=== PATIENT | male | born 1935 | race Caucasian/White ===

== ENCOUNTER → 2016-12-12 | Outpatient (CLI) | payer MEDICARE ==
[~2016-12-12] MED LIST: AC325T PO; ACET325T38 PO; ALLO100T PO; ALLP100T PO; ALPR.25T PO; ALPR0.254 PO; AMLO5TAB2 PO; ATOR10TA66 PO; CITA40TA11 PO; CTLP20T PO; DCS100C PO; DIVA125C10 PO; DOCU-143 PO; DRNB2.5C PO; ENAL20TA PO; ENAL20TA76 PO; ENLP10T PO; ENOX40DI8 SC; FAMO20TA5 PO; FLUT16SP22; FURO40TA4 PO; HYDR-3812 PO; HYDR-757 PO; LACT10PA2 PO; LEVO25TA PO; LOVA20TA2 PO; LVT.025T PO; MAGN400O7 PO; MENT71OI TP; METO2.5T PO; MIRT30TA6 PO; POTA10TA36 PO; RANI150T11 PO; RIVA1PAT TD; SITA100T PO; SITA50TA PO; SMV10T PO; TR025C15 TP
[2016-12-12 17:44] LABS: BILIRUBIN,URINE NEGATIVE (NEGATIVE); KETONES,URINE NEGATIVE (NEGATIVE); LEUKOCYTE ESTERASE ,URINE NEGATIVE (NEGATIVE); NITRITE,URINE NEGATIVE (NEGATIVE); PH,URINE 5 (5-9); PROTEIN,URINE NEGATIVE (NEGATIVE); UROBILINOGEN,URINE NORMAL (NORMAL)
[2016-12-12 18:13] LABS: SQUAMOUS EPITHELIAL CELL,UR 0-2 /HPF
== END ==
LOC: LABNPT 17:16
PROVIDERS: ATTEND Internal Medicine
DX: R45.1 Restlessness and agitation (principal); R35.0 Frequency of micturition
CPT/HCPCS: 81000

== ENCOUNTER 2017-12-25 20:47 | Emergency (ER) | payer MEDICARE ==
[~2017-12-25] VITALS: Ht 175.3 cm; Wt 77.3 kg
[~2017-12-25 20:47] MED LIST changes: +ACHD5005 PO; -HYDR-3812 PO
--- NOTE | 2017-12-25 21:03 | ED Fall/Injury ---
General Chief Complaint: Trauma-Non Activation Stated Complaint: FALL Nursing Triage Note: FALL FROM WHEELCHAIR Source: patient, EMS, custodial records Exam Limitations: clinical condition History of Present Illness Date Seen by Provider: Dec 25, 2017 Time Seen by Provider: 20:45 Initial Comments The patient presents to the ER from [facility] by EMS with a chief complaint that per nursing staff he likes to lean forward in his wheelchair and tonight he was leaning forward and just fell out of it onto his forehead. He scuffed up his forehead. He applied some Vaseline ointment to it. He is also having some pain in his left knee and right shoulder. Blood sugar 334 per EMS and his vital signs are stable with no fever. He's had no complaints of cough shortness of breath etc. He is in the custodial because of a fall a few years ago and brain bleed subsequent. At baseline is not very communicative but can answer simple yes or no questions. . He is not on any blood thinners. EMS reports the patient refused to wear the c-collar. Location [facility] Occurred: [facility] Allergies and Home Medications Allergies Coded Allergies: Sulfa (Sulfonamide Antibiotics) (Verified Allergy, Mild, 02/18/16) HIVES levofloxacin (Verified Allergy, Mild, 02/18/16) metformin (Verified Allergy, Mild, 02/18/16) CAUSES DIARRHEA iodine (Verified Adverse Reaction, Severe, 02/18/16) ANAPHYLAXIS Home Medications Acetaminophen 325 Mg Tablet, 325 MG PO TID, (Reported) Allopurinol 100 Mg Tablet, 100 MG PO BID, (Reported) Alprazolam 0.25 Mg Tablet, 0.25 MG PO TID, (Reported) Amlodipine Besylate 5 Mg Tablet, 5 MG PO DAILY, (Reported) Atorvastatin Calcium 10 Mg Tablet, 15 MG PO HS, (Reported) TAKES 1 & 1/2 (10MG) TABLET Citalopram Hydrobromide 40 Mg Tablet, 40 MG PO HS, (Reported) Divalproex Sodium 125 Mg Cap.sprink, 250 MG PO BID, (Reported) TAKES 2 (125MG) CAPSULES Docusate Sodium 100 Mg Capsule, 100 MG PO DAILY PRN for CONSTIPATION, (Reported) Enalapril Maleate 20 Mg Tablet, 20 MG PO 1400, (Reported) Enoxaparin Sodium 40 Mg/0.4 Ml Syringe, 40 MG SC DAILY@0800 Prescribed by: LUIS A VALENTINE on 02/21/16 0851 Fluticasone Propionate 16 Gm [place].susp, 2 SPRAYS NA 1800, (Reported) Furosemide 40 Mg Tablet, 40 MG PO BID, (Reported) Hydrocodone Bit/Acetaminophen 1 Each Tablet, 0 TAB PO Q4H PRN for SEVERE PAIN Prescribed by: LUIS A VALENTINE on 02/21/16 0851 Lactulose 10 Gm Packet, 10 GM PO DAILY PRN for CONSTIPATION, (Reported) Levothyroxine Sodium 25 Mcg Tablet, 25 MCG PO 0530, (Reported) Menthol/Lanolin/Calamine/Znox 71 Gm Oint, TP Q12H PRN for SKIN CONDITION, ( Reported) APPLY TO BUTTOCKS Metolazone 2.5 Mg Tablet, 2.5 MG PO MoWeFr, (Reported) Mirtazapine 30 Mg Tablet, 30 MG PO HS, (Reported) Potassium Chloride 10 Meq Tab.er.prt, 10 MEQ PO DAILY, (Reported) Ranitidine HCl 150 Mg Tablet, 150 MG PO 1800, (Reported) Rivastigmine 4.6 Mg Patch, 4.6 MG TD 1400, (Reported) Triamcinolone Acet 15 Gm Cr, TP BID PRN for DERMATITIS, (Reported) APPLY TO POSTERIOR NECK 1% Patient Home Medication List Home Medication List Reviewed: Yes Review of Systems Constitutional: No chills, No diaphoresis Eyes: Denies Blindness, Denies Blurred Vision, Denies Drainage Ears, Nose, Mouth, Throat: denies ear pain, denies ear discharge Respiratory: No cough, No short of breath Cardiovascular: No chest pain, No edema Gastrointestinal: No abdominal pain, No nausea, No vomiting Genitourinary: No discharge, No dysuria Musculoskeletal: see HPI; No back pain; joint pain Past Dhjccwo-Yovsbm-Yqybsj Hx Patient Social History Alcohol Use: Denies Use Recreational Drug Use: No Smoking Status: Never a Smoker 2nd Hand Smoke Exposure: No Recent Foreign Travel: No Contact w/Someone Who Travel: No Recent Infectious Disease Expo: No Recent Hopitalizations: No Immunizations Up To Date Tetanus Booster (TDap): Unknown PED Vaccines UTD: No Date of Pneumonia Vaccine: Mar 01, 2016 Seasonal Allergies Seasonal Allergies: No Past Medical History Surgeries: Yes (retinal eye tear repair) Orthopedic Respiratory: No Cardiac: Yes (edema) High Cholesterol, Hypertension Neurological: Yes Dementia, Stroke Reproductive Disorders: No Sexually Transmitted Disease: No HIV/AIDS: No Gastrointestinal: Yes Gastroesophageal Reflux, Chronic Constipation Musculoskeletal: Yes Gout Endocrine: Yes Hypothyroidsim, Diabetes, Non-Insulin dep Cancer: No Psychosocial: No (mood disorder) Anxiety, Depression Integumentary: No Blood Disorders: No Adverse Reaction/Blood Tranf: No Family Medical History Family history: Breast disease 03 MOTHER Family history: Diabetes mellitus 09 BROTHER History of - disorder 03 FATHER History of - respiratory disease 03 FATHER Hypercholesterolemia 09 BROTHER Parkinson's disease 03 MOTHER Stroke 03 MOTHER Tuberculosis 03 MOTHER No Family History of: Abdominal aortic aneurysm Johnston's disease Alcoholism Aphasia Cancer Cancer of colon Cataract Chest pain Congenital heart disease Congestive heart failure Dementia Dysphagia Family history: Allergy Family history: Alzheimer's disease Family history: Arthritis Family history: Asthma Family history: Cardiovascular disease Family history: Coronary thrombosis Family history: Gastrointestinal disease Family history: Glaucoma Family history: Hypertension Family history: Osteoporosis Family history: Thyroid disorder Headache Hearing loss Heart disease Hereditary disease History of - anemia History of drug abuse Human immunodeficiency virus (HIV) seropositivity Infertile Malignant neoplasm of lung Myocardial infarction Prostate cancer Psychotic disorder Seizure disorder Physical Exam Vital Signs Vital Signs - First Documented 12/25/17 20:50 Temp 97.6 Pulse 96 Resp 16 B/P (MAP) 151/87 (108) Pulse Ox 97 O2 Delivery Room Air Capillary Refill : Less Than 3 Seconds Height, Weight, BMI Height: 5'9" Weight: 170lbs. 8.0oz. 77.619313zw; 28.3 BMI Method:Estimated General Appearance: WD/WN, no apparent distress, other HEENT: PERRL/EOMI, normal ENT inspection, TMs normal Neck: non-tender, full range of motion, supple, normal inspection Cardiovascular: normal peripheral pulses, regular rate, rhythm, other ( bilateral lower extremity 2+ edema with compression stockings in place) Respiratory: chest non-tender, lungs clear, normal breath sounds, no respiratory distress, no accessory muscle use Peripheral Pulses: 2+ Radial Pulses (R), 2+ Radial Pulses (L) Gastrointestinal: normal bowel sounds, non tender, soft Pelvic: normal external exam, other (and nontender to palpation) Extremities: normal range of motion, normal capillary refill, other (swelling and pain in the left knee with a small superficial abrasion anteriorly. Pain in the right clavicle) Neurologic/Psychiatric: alert, other (oriented to person) Skin: other (abrasion left knee and forehead) Saline Coma Score Best Eye Response: (4) Open Spontaneously Best Verbal Response: (4) Confused Conversation Best Motor Response: (6) Obeys Commands [place] Total: 15 Progress/Results/Core Measures Results/Orders My Orders Orders - ARIADNA VILCHIS Ct Head/Cervical Spine Wo (12/25/17 20:54) Chest 1 View, Ap/Pa Only (12/25/17 20:54) Shoulder, Right, 3 Views (12/25/17 20:54) Knee, Left, 3 Views (12/25/17 20:54) Vital Signs/I&O 12/25/17 20:50 Temp 97.6 Pulse 96 Resp 16 B/P (MAP) 151/87 (108) Pulse Ox 97 O2 Delivery Room Air Blood Pressure Mean: 108 Progress Progress Note : Time: 21:01 Progress Note Offered him pain medicine and he has declined. Plan to scan his head and neck with CT and obtain shoulder topical x-ray on the right and left knee x-rays. His range of motion is full but he is wheelchair bound at baseline. Between vital signs and blood sugars no indication for any blood tests or urinalysis time. Diagnostic Imaging Diagonstic Imaging: CT (without contrast) Plain Films/CT/US/NM/MRI: c-spine, head Comments NAME: DEBRA COSBY [facility] REC#: [id number] PT STATUS: REG ER : 1935 PHYSICIAN: ARIADNA VILCHIS MD ADMIT DATE: 12/25/17/ER Draft Date of Exam:12/25/17 CT HEAD/CERVICAL SPINE WO PROCEDURE: CT head and CT cervical spine without contrast. TECHNIQUE: Multiple contiguous axial images were obtained through the brain and cervical spine without the use of intravenous contrast. Sagittal and coronal reformations through the cervical spine were then performed. INDICATION: Fall, headache. COMPARISON: 03/20/2016. CT HEAD: Stable age-related cerebral volume loss and chronic small vessel ischemic changes are present. There is no midline shift or mass effect. There is no hemorrhage or evidence of acute ischemia. There is a stable right periventricular lacunar infarct. There is no cerebral edema, midline shift or mass effect. There is no skull fracture. Paranasal sinuses and mastoids are unremarkable. IMPRESSION: No acute intracranial abnormalities. CT CERVICAL SPINE: Alignment is normal. There is no subluxation or fracture. Mild degenerative changes are seen throughout the disc spaces and facet joints. There is no osseous lesion. IMPRESSION: No traumatic malalignment or fracture. Dictated on workstation # [id number] Dict: 12/25/172119 Trans: 12/25/172125 [facility] [id number] Interpreted by: COLETTE SALAS Electronically signed by: Reviewed: Reviewed by Ct Diagonstic Imaging: Xray Plain Films/CT/US/NM/MRI: other (right clavicle) Comments No acute osseous abnormality. NAME: DEBRA COSBY [facility] REC#: [id number] PHYSICIAN: ARIADNA VILCHIS MD CC: COLETTE SALAS; ARIADNA VILCHIS Page 1 of 1 RADIOLOGY REPORT VIA [place], [place] CC: COLETTE SALAS; ARIADNA VILCHIS Page 1 of 1 RADIOLOGY REPORT NAME: DEBRA COSBY [facility] REC#: [id number] PT STATUS: REG ER : 1935 PHYSICIAN: ARIADNA VILCHIS MD ADMIT DATE: 12/25/17/ER Signed Date of Exam: 12/25/17 SHOULDER, RIGHT, 3 VIEWS INDICATION: Fall, right shoulder pain COMPARISON: None FINDINGS: 3 views of the right shoulder demonstrate no fracture or dislocation. Articular surfaces are age-appropriate. No osseous lesion seen. IMPRESSION: No fracture or dislocation Dictated by: Dictated on workstation # [id number] Dict: 12/25/172134 Trans: 12/25/172143 Interpreted by: COLETTE SALAS Electronically signed by: COLETTE SALAS 12/25/172143 Reviewed: Reviewed by Ct Diagonstic Imaging: Xray Plain Films/CT/US/NM/MRI: knee (left) Comments No acute osseous abnormality noted. NAME: DEBRA COSBY [facility] REC#: [id number] PHYSICIAN: ARIADNA VILCHIS MD CC: COLETTE SALAS; ARIADNA VILCHIS Page 1 of 1 RADIOLOGY REPORT VIA [place], [place] CC: COLETTE SALAS; ARIADNA VILCHIS Page 1 of 1 RADIOLOGY REPORT NAME: ALEADEBRA Reyes [facility] REC#: [id number] PT STATUS: REG ER : 1935 PHYSICIAN: ARIADNA VILCHIS MD ADMIT DATE: 12/25/17/ER Signed Date of Exam: 12/25/17 KNEE, LEFT, 3 VIEWS INDICATION: Left knee injury, pain COMPARISON: None FINDINGS: 3 views of the left knee demonstrate mild degenerative joint disease. There is no fracture or dislocation. No joint effusion seen. Atherosclerosis is present. IMPRESSION: Degenerative joint disease without fracture Dictated by: Dictated on workstation # [id number] Dict: 12/25/172134 Trans: 12/25/172143 Interpreted by: COLETTE SALAS Electronically signed by: COLETTE SALAS 12/25/172143 Reviewed: Reviewed by Me Diagonstic Imaging: Xray Plain Films/CT/US/NM/MRI: chest Comments NAME: ALEADEBRA Amy [facility] REC#: [id number] PHYSICIAN: ARIADNA VILCHIS MD CC: COLETTE SALAS; ARIADNA VILCHIS Page 1 of 1 RADIOLOGY REPORT VIA [place], [place] CC: COLETTE SALAS; ARIADNA VILCHIS Page 1 of 1 RADIOLOGY REPORT NAME: ALEADEBRA Amy [facility] REC#: [id number] PT STATUS: REG ER : 1935 PHYSICIAN: ARIADNA VILCHIS MD ADMIT DATE: 12/25/17/ER Signed Date of Exam: 12/25/17 CHEST 1 VIEW, AP/PA ONLY INDICATION: Fall COMPARISON: 02/18/16 FINDINGS: Single view of the chest demonstrates stable cardiac enlargement and widening of the mediastinum. Lungs are clear. There is no pneumothorax. Osseous structures normal. IMPRESSION: No acute cardiopulmonary findings. Dictated by: Dictated on workstation # [id number] Dict: 12/25/172134 Trans: 12/25/172143 Interpreted by: COLETTE SALAS Electronically signed by: COLETTE SALAS 12/25/172143 Reviewed: Reviewed by Me Departure Impression Primary Impression: Fall Qualified Codes: W19.XXXA - Unspecified fall, initial encounter Additional Impressions: Abrasion Left knee pain Qualified Codes: M25.562 - Pain in left knee Right shoulder pain Qualified Codes: M25.511 - Pain in right shoulder Disposition: 01 HOME, SELF-CARE Condition: Stable Departure-Patient Inst. Decision time for Depature: 21:50 Referrals: VINICIO ALVAREZ MD (PCP/Family) Primary Care Physician Patient Instructions: Preventing Falls in the Older Adult Add. Discharge Instructions: Apply an Joselito bandage around the knee for swelling or pain as well as ice for 20 minutes every 2-4 hours for the next 3 days. Tylenol 1000 mg every 8 hours. If you're pain is not improving over the next couple weeks then you can follow up with the primary care provider. Keep the abrasions underneath forehead clean with regular soap and water or shampoo regularly. All discharge instructions reviewed with patient and/or family. Voiced understanding. Copy Copies To 1: VINICIO ALVAREZ MD, TITUS J Dec 25, 2017 21:03
--- NOTE | 2017-12-25 21:26 | Diagnostic Imaging Report ---
PROCEDURE: CT head and CT cervical spine without contrast. TECHNIQUE: Multiple contiguous axial images were obtained through the brain and cervical spine without the use of intravenous contrast. Sagittal and coronal reformations through the cervical spine were then performed. INDICATION: Fall, headache. COMPARISON: 03/20/2016. CT HEAD: Stable age-related cerebral volume loss and chronic small vessel ischemic changes are present. There is no midline shift or mass effect. There is no hemorrhage or evidence of acute ischemia. There is a stable right periventricular lacunar infarct. There is no cerebral edema, midline shift or mass effect. There is no skull fracture. Paranasal sinuses and mastoids are unremarkable. IMPRESSION: No acute intracranial abnormalities. CT CERVICAL SPINE: Alignment is normal. There is no subluxation or fracture. Mild degenerative changes are seen throughout the disc spaces and facet joints. There is no osseous lesion. IMPRESSION: No traumatic malalignment or fracture. Dictated by: Dictated on workstation # [id number]
--- NOTE | 2017-12-25 21:40 | Diagnostic Imaging Report ---
INDICATION: Left knee injury, pain COMPARISON: None FINDINGS: 3 views of the left knee demonstrate mild degenerative joint disease. There is no fracture or dislocation. No joint effusion seen. Atherosclerosis is present. IMPRESSION: Degenerative joint disease without fracture Dictated by: Dictated on workstation # [id number]
--- NOTE | 2017-12-25 21:43 | Diagnostic Imaging Report ---
INDICATION: Fall, right shoulder pain COMPARISON: None FINDINGS: 3 views of the right shoulder demonstrate no fracture or dislocation. Articular surfaces are age-appropriate. No osseous lesion seen. IMPRESSION: No fracture or dislocation Dictated by: Dictated on workstation # [id number]
--- NOTE | 2017-12-25 21:44 | Diagnostic Imaging Report ---
INDICATION: Fall COMPARISON: 02/18/16 FINDINGS: Single view of the chest demonstrates stable cardiac enlargement and widening of the mediastinum. Lungs are clear. There is no pneumothorax. Osseous structures normal. IMPRESSION: No acute cardiopulmonary findings. Dictated by: Dictated on workstation # [id number]
[2017-12-25 23:46] VITALS: BP 145/78
== END 2017-12-25 23:40 | disposition home or self-care (01) ==
LOC: EDUNIT# 20:47 → ER 20:48
DX: S00.81XA Abrasion of other part of head, initial encounter (principal); M25.562 Pain in left knee; M25.511 Pain in right shoulder; E78.00 Pure hypercholesterolemia, unspecified; I10 Essential (primary) hypertension; F03.90 Unspecified dementia, unspecified severity, without behavioral disturbance, psychotic disturbance, mood disturbance, and anxiety; K21.9 Gastro-esophageal reflux disease without esophagitis; M10.9 Gout, unspecified; E03.9 Hypothyroidism, unspecified; E11.9 Type 2 diabetes mellitus without complications; F41.9 Anxiety disorder, unspecified; F32.9 Major depressive disorder, single episode, unspecified; R40.2142 Coma scale, eyes open, spontaneous, at arrival to emergency department; R40.2242 Coma scale, best verbal response, confused conversation, at arrival to emergency department; R40.2362 Coma scale, best motor response, obeys commands, at arrival to emergency department; Z82.49 Family history of ischemic heart disease and other diseases of the circulatory system; Z87.19 Personal history of other diseases of the digestive system; Z86.73 Personal history of transient ischemic attack (TIA), and cerebral infarction without residual deficits; Z88.2 Allergy status to sulfonamides; Z88.1 Allergy status to other antibiotic agents; Z88.8 Allergy status to other drugs, medicaments and biological substances; Z91.041 Radiographic dye allergy status; Z79.52 Long term (current) use of systemic steroids; V00.811A Fall from moving wheelchair (powered), initial encounter
CPT/HCPCS: 70450; 71045; 72125; 73030; 73562

== ENCOUNTER 2018-08-12 11:42 | Emergency (ER) | payer MEDICARE ==
[~2018-08-12] VITALS: Ht 170.2 cm; Wt 68.0 kg
[~2018-08-12 11:42] MED LIST changes: +AMLO5TAB9 PO
--- NOTE | 2018-08-12 11:50 | ED Fall/Injury ---
General Stated Complaint: FALL Source: EMS, shelter records Exam Limitations: no limitations History of Present Illness Date Seen by Provider: Aug 12, 2018 Time Seen by Provider: 11:48 Initial Comments to ER per EMS from [facility] with reports of an unwitnessed fall. Patient has dementia and is unable to contribute to what happened. He has a skin tear to the dorsal aspect of the radial side of the left hand, laceration /abrasion/hematoma to the right side of the forehead. Occurred: just prior to arrival Severity: moderate Injuries/Pain Location: head, upper extremity Context: unknown Loss of Consciousness: unsure Allergies and Home Medications Allergies Coded Allergies: Sulfa (Sulfonamide Antibiotics) (Verified Allergy, Mild, 02/18/16) HIVES levofloxacin (Verified Allergy, Mild, 02/18/16) metformin (Verified Allergy, Mild, 02/18/16) CAUSES DIARRHEA iodine (Verified Adverse Reaction, Severe, 02/18/16) ANAPHYLAXIS Home Medications Acetaminophen 325 Mg Tablet, 325 MG PO TID, (Reported) Allopurinol 100 Mg Tablet, 100 MG PO BID, (Reported) Alprazolam 0.25 Mg Tablet, 0.25 MG PO TID, (Reported) Amlodipine Besylate 5 Mg Tablet, 5 MG PO DAILY, (Reported) Atorvastatin Calcium 10 Mg Tablet, 15 MG PO HS, (Reported) TAKES 1 & 1/2 (10MG) TABLET Citalopram Hydrobromide 40 Mg Tablet, 40 MG PO HS, (Reported) Divalproex Sodium 125 Mg Cap.sprink, 250 MG PO BID, (Reported) TAKES 2 (125MG) CAPSULES Docusate Sodium 100 Mg Capsule, 100 MG PO DAILY PRN for CONSTIPATION, (Reported) Enalapril Maleate 20 Mg Tablet, 20 MG PO 1400, (Reported) Enoxaparin Sodium 40 Mg/0.4 Ml Syringe, 40 MG SC DAILY@0800 Prescribed by: LUIS A VALENTINE on 02/21/16 0851 Fluticasone Propionate 16 Gm [place].susp, 2 SPRAYS NA 1800, (Reported) Furosemide 40 Mg Tablet, 40 MG PO BID, (Reported) Hydrocodone Bit/Acetaminophen 1 Each Tablet, 0 TAB PO Q4H PRN for SEVERE PAIN Prescribed by: LUIS A VALENTINE on 02/21/16 0851 Lactulose 10 Gm Packet, 10 GM PO DAILY PRN for CONSTIPATION, (Reported) Levothyroxine Sodium 25 Mcg Tablet, 25 MCG PO 0530, (Reported) Menthol/Lanolin/Calamine/Znox 71 Gm Oint, TP Q12H PRN for SKIN CONDITION, ( Reported) APPLY TO BUTTOCKS Metolazone 2.5 Mg Tablet, 2.5 MG PO MoWeFr, (Reported) Mirtazapine 30 Mg Tablet, 30 MG PO HS, (Reported) Potassium Chloride 10 Meq Tab.er.prt, 10 MEQ PO DAILY, (Reported) Ranitidine HCl 150 Mg Tablet, 150 MG PO 1800, (Reported) Rivastigmine 4.6 Mg Patch, 4.6 MG TD 1400, (Reported) Triamcinolone Acet 15 Gm Cr, TP BID PRN for DERMATITIS, (Reported) APPLY TO POSTERIOR NECK 1% Patient Home Medication List Home Medication List Reviewed: Yes Review of Systems Review of Systems Constitutional: see HPI, other (unable to obtain due to dementia) Past Celqpch-Szswib-Pfbeap Hx Patient Social History 2nd Hand Smoke Exposure: No Recent Hopitalizations: No Immunizations Up To Date Tetanus Booster (TDap): Unknown PED Vaccines UTD: No Date of Pneumonia Vaccine: Mar 01, 2016 Seasonal Allergies Seasonal Allergies: No Past Medical History Surgeries: Yes (retinal eye tear repair) Orthopedic Respiratory: No Cardiac: Yes (edema) High Cholesterol, Hypertension Neurological: Yes Dementia, Stroke Reproductive Disorders: No Sexually Transmitted Disease: No HIV/AIDS: No Gastrointestinal: Yes Gastroesophageal Reflux, Chronic Constipation Musculoskeletal: Yes Gout Endocrine: Yes Hypothyroidsim, Diabetes, Non-Insulin dep Cancer: No Psychosocial: No (mood disorder) Anxiety, Depression Integumentary: No Blood Disorders: No Adverse Reaction/Blood Tranf: No Family Medical History Family history: Breast disease 03 MOTHER Family history: Diabetes mellitus 09 BROTHER History of - disorder 03 FATHER History of - respiratory disease 03 FATHER Hypercholesterolemia 09 BROTHER Parkinson's disease 03 MOTHER Stroke 03 MOTHER Tuberculosis 03 MOTHER No Family History of: Abdominal aortic aneurysm B[place]en's disease Alcoholism Aphasia Cancer Cancer of colon Cataract Chest pain Congenital heart disease Congestive heart failure Dementia Dysphagia Family history: Allergy Family history: Alzheimer's disease Family history: Arthritis Family history: Asthma Family history: Cardiovascular disease Family history: Coronary thrombosis Family history: Gastrointestinal disease Family history: Glaucoma Family history: Hypertension Family history: Osteoporosis Family history: Thyroid disorder Headache Hearing loss Heart disease Hereditary disease History of - anemia History of drug abuse Human immunodeficiency virus (HIV) seropositivity Infertile Malignant neoplasm of lung Myocardial infarction Prostate cancer Psychotic disorder Seizure disorder Physical Exam Vital Signs Vital Signs - First Documented 08/12/18 11:42 Temp 96.6 Pulse 72 Resp 16 B/P (MAP) 130/71 (90) Pulse Ox 98 O2 Delivery Room Air Capillary Refill : Height, Weight, BMI Height: 5'9" Weight: 170lbs. 8.0oz. 77.731127tx; 28.3 BMI Method:Estimated General Appearance: WD/WN, no apparent distress, other (laughing/crying alternating at inappropriate times in response to normal conversation.) HEENT: PERRL/EOMI, normal ENT inspection, other (2 cm laceration to the right side of the forehead it will require primary closure. There is a surrounding 2- 3 cm hematoma.) Neck: non-tender, full range of motion Respiratory: no respiratory distress, no accessory muscle use Gastrointestinal: normal bowel sounds, non tender Neurologic/Psychiatric: alert, normal mood/affect, oriented x 3 Skin: normal color, warm/dry, other (There is a 2 cm skin tear superficial to the dorsal aspect left hand over the first metacarpal. This was cleaned with chlorhexidine/saline solution, closed with Steri-Strips and nonadherent gauze and a gauze roll. Similar skin tear but this one is 3-4 cm to the posterior left elbow. This was repaired in identical fashion.) [place] Coma Score Best Eye Response: (4) Open Spontaneously Best Verbal Response: (4) Confused Conversation Best Motor Response: (6) Obeys Commands [place] Total: 14 Procedures/Interventions Wound Location: Face Wound Length (cm): 2 Wound's Depth, Shape: linear, sub Q Wound Explored: clean Irrigated w/ Saline (ccs): 10 Anesthesia: 1% Lidocaine Volume Anesthetic (ccs): 2 Suture: Prolene Suture Size: 5-0 Number of Sutures: 3 Layer Closure?: 1 Number Deep Layer Sutures: 0 Progress/Results/Core Measures Results/Orders My Orders Orders - MANUELITO KIRBY APRN Ct Head/Cervical Spine Wo (08/12/18 11:47) Pelvis (08/12/18 11:47) Hand, Left, 3 Views (08/12/18 11:47) Dipht,Pertuss(Acell),Tet Adult (Boostrix (08/12/18 12:00) Lidocaine 1% Inj 20 Ml (Xylocaine 1% Inj (08/12/18 12:00) Vital Signs/I&O 08/12/18 11:42 Temp 96.6 Pulse 72 Resp 16 B/P (MAP) 130/71 (90) Pulse Ox 98 O2 Delivery Room Air Departure Impression Primary Impression: Skin tear Additional Impressions: Fall Qualified Codes: W19.XXXA - Unspecified fall, initial encounter Laceration Disposition: 03 XFER SNF Condition: Stable Departure-Patient Inst. Decision time for Depature: 12:56 Referrals: VINICIO ALVAREZ MD (PCP/Family) Primary Care Physician Patient Instructions: Wound Care (DC) Add. Discharge Instructions: 1. Return to ER for any concerns 2. Change dressings to arm as needed 3. Sutures to forehead should be removed in 5-7 days. MANUELITO KIRBY APRN Aug 12, 2018 11:50
[2018-08-12] MEDS ORDERED: TETANUS,DIPTH,PERTUSS P/F (BOOSTRIX) 0.5 ML VIAL IM ONE (12:00)
[2018-08-12] MEDS ORDERED: LIDOCAINE 1% INJ 20 ML 20 ML VIAL INJ ONE (12:00)
--- NOTE | 2018-08-12 12:40 | Diagnostic Imaging Report ---
PROCEDURE: CT head and CT cervical spine without contrast. TECHNIQUE: Multiple contiguous axial images were obtained through the brain and cervical spine without the use of intravenous contrast. Sagittal and coronal reformations through the cervical spine were then performed. INDICATION: Fall. COMPARISON: Comparison is made with prior CT from 12/25/2017. CT HEAD: Ventricles and sulci remain prominent. Moderate periventricular hypodensity is noted consistent with senescent change. Area of encephalomalacia in the right frontal lobe appears stable. No acute intra-axial or extra-axial hemorrhage is detected. Cisterns are patent. Visualized paranasal sinuses are clear. IMPRESSION: Chronic and senescent changes. No acute intracranial process is detected. CT CERVICAL SPINE: Alignment is normal. There is significant degenerative disc disease at the C5-6 and C6-7 levels with disc space narrowing and marginal osteophyte formation. Prevertebral tissues are normal. No fractures are seen. The odontoid appears intact. IMPRESSION: Cervical spondylosis. No acute bony abnormality is detected. Dictated by: Dictated on workstation # [id number]
--- NOTE | 2018-08-12 12:42 | Diagnostic Imaging Report ---
INDICATION: Fall. TIME OF EXAM: 12:02 p.m. FINDINGS: Three views of the left hand were obtained. There is generalized demineralization. Metacarpals and phalanges appear intact. Carpus is intact. No fractures are seen. There are degenerative changes at the first CMC joint. IMPRESSION: Chronic changes. No acute bony abnormality is detected. Dictated by: Dictated on workstation # [id number]
--- NOTE | 2018-08-12 12:42 | Diagnostic Imaging Report ---
INDICATION: Unwitnessed fall. TIME OF EXAM: 12:06 p.m. FINDINGS: Single AP view of the pelvis demonstrates postop changes to the left hip. Left hip prosthesis appears intact. Right hip is intact. Rami are unremarkable. No fractures are seen. IMPRESSION: No acute bony abnormality is detected. Dictated by: Dictated on workstation # [id number]
--- NOTE | 2018-08-12 13:01 | NUR ---
[facility]F-WAY NOTIFIED THAT WE WERE READY FOR HIM TO BE PICKED UP.
[2018-08-12 14:23] VITALS: BP 131/77
== END 2018-08-12 14:23 ==
LOC: EDUNIT# 11:42 → ER 11:43
DX: S61.412A Laceration without foreign body of left hand, initial encounter (principal); F03.90 Unspecified dementia, unspecified severity, without behavioral disturbance, psychotic disturbance, mood disturbance, and anxiety; E78.00 Pure hypercholesterolemia, unspecified; I10 Essential (primary) hypertension; K21.9 Gastro-esophageal reflux disease without esophagitis; M10.9 Gout, unspecified; E03.9 Hypothyroidism, unspecified; E11.9 Type 2 diabetes mellitus without complications; R40.2142 Coma scale, eyes open, spontaneous, at arrival to emergency department; R40.2242 Coma scale, best verbal response, confused conversation, at arrival to emergency department; R40.2362 Coma scale, best motor response, obeys commands, at arrival to emergency department; F41.9 Anxiety disorder, unspecified; F32.9 Major depressive disorder, single episode, unspecified; F34.9 Persistent mood [affective] disorder, unspecified; Z87.19 Personal history of other diseases of the digestive system; Z23 Encounter for immunization; Z82.49 Family history of ischemic heart disease and other diseases of the circulatory system; Z86.73 Personal history of transient ischemic attack (TIA), and cerebral infarction without residual deficits; Z88.2 Allergy status to sulfonamides; Z88.8 Allergy status to other drugs, medicaments and biological substances; Z91.041 Radiographic dye allergy status; Z79.51 Long term (current) use of inhaled steroids; Z98.890 Other specified postprocedural states; W19.XXXA Unspecified fall, initial encounter
CPT/HCPCS: 70450; 72125; 72170; 73130; 90715

== ENCOUNTER → 2019-02-21 | Outpatient (CLI) | payer MEDICARE | LOC: LAB 14:42 | PROVIDERS: ATTEND Nurse Practitioner | DX: Z01.89 Encounter for other specified special examinations (principal) | CPT/HCPCS: 87220 ==